=== PATIENT | female | born 1955 | race Caucasian/White ===

== ENCOUNTER 2017-07-20 09:26 | Emergency (ER) | payer OTHER ==
[2017-07-20 09:31] VITALS: RESP 18
--- NOTE | 2017-07-20 10:08 | ED ---
Lower Extremity Injury HPI - General Chief Complaint: Extremity Injury, Lower Stated Complaint: fall, foot injury Time Seen by Provider: 07/20/17 09:37 Source: patient, RN notes reviewed, old records reviewed Mode of arrival: wheelchair Limitations: no limitations - History of Present Illness Initial Comments: this is a 62-year-old female presenting to the emergency Department chief complaint of left foot and ankle pain for the past week. As well as right hip pain. Patient reports that she was jumping off her boat, and landed on both of her feet and her right hip. Patient states that over the past week she's had some increased swelling over her foot. She states that the pain has became progressively worse. She states the swelling has subsided at this time. Denies any difficulty with range of motion of her toes or ankle. She states the pain is now radiating towards her heel. Patient reports that she also was having difficulty with her right hip. She states the pain is over the lateral aspect of the hip. She states there is no bruising at the time that she fell.patient per that she was ambulating with crutches that she has at home. - Related Data Home Medications Medication Instructions Recorded Confirmed Ibuprofen [Motrin] 800 mg PO DAILY PRN 07/20/17 07/20/17 Previous Rx's Medication Instructions Recorded HYDROcodone/APAP 10-325MG [Lane 1 tab PO Q6H PRN #20 tab 07/20/17 10-325] Allergies Allergy/AdvReac Type Severity Reaction Status Date / Time No Known Allergies Allergy Verified 07/20/17 11:28 Review of Systems ROS Statement: Those systems with pertinent positive or pertinent negative responses have been documented in the HPI. ROS Other: All systems not noted in ROS Statement are negative. Past Medical History Past Medical History: No Reported History History of Any Multi-Drug Resistant Organisms: None Reported Past Surgical History: No Surgical Hx Reported Past Psychological History: No Psychological Hx Reported Smoking Status: Former smoker Past Alcohol Use History: None Reported Past Drug Use History: None Reported General Exam - General Exam Comments Initial Comments: this is a 62-year-old female. No acute distress. Limitations: no limitations General appearance: alert, in no apparent distress Head exam: Present: atraumatic, normocephalic, normal inspection Eye exam: Present: normal appearance, PERRL, EOMI. Absent: scleral icterus, conjunctival injection, periorbital swelling ENT exam: Present: normal exam, mucous membranes moist Neck exam: Present: normal inspection. Absent: tenderness, meningismus, lymphadenopathy Respiratory exam: Present: normal lung sounds bilaterally. Absent: respiratory distress, wheezes, rales, rhonchi, stridor Cardiovascular Exam: Present: regular rate, normal rhythm, normal heart sounds. Absent: systolic murmur, diastolic murmur, rubs, gallop, clicks GI/Abdominal exam: Present: soft, normal bowel sounds. Absent: distended, tenderness, guarding, rebound, rigid Extremities exam: Present: other (patient is smiling over the left foot and ankle. Less than 2 second capillary refill. Good dorsalis pedis pulse. Patient reports the pain is mainly over the posterior calcaneus. Patient also reports she is somewhat tender over the right IT band. Patient has full range of motion of the hip. No bruising noted.) Back exam: Present: normal inspection Neurological exam: Present: alert, oriented X3, CN II-XII intact Psychiatric exam: Present: normal affect, normal mood Skin exam: Present: warm, dry, intact, normal color. Absent: rash Course Vital Signs 07/20/17 07/20/17 09:28 12:31 Temperature 97.6 F 97.1 F L Pulse Rate 80 75 Respiratory 18 18 Rate Blood Pressure 166/86 186/90 O2 Sat by Pulse 100 100 Oximetry - Reevaluation(s) Reevaluation #1: 07/20/17 12:10 discussed the case with orthopedic physician operator assistant i cementing furnace mason, just covered. He recommends putting the patient in a posterior splint. Inpatient continue to use her crutches and be nonweightbearing. Discussed the compression fracture. Discussed thyroid the patient for pain medication, and they will follow up with her in the office tomorrow morning. Procedures - Orthopedic Splinting/Casting Injury #1 Side: left Lower Extremity Injury Location: foot Lower Extremity Immobilizer: posterior splint Other Orthopedic Equipment: crutches Additional Comments: Neurovascularly intact. Medical Decision Making - Medical Decision Making This is a 62 year old female with left heel pain and right hip and mild back pain one week after jumping off her boat onto a cement dock. Patient relates that the jump is 1-2 feet. Patient reports she landed on her feet, and rolled onto her left hip. Patient is found to have left calcaneus fracture. Discussed case with Dr. Livingston, he instructed to complete bilateral knee, hip, and back xray. Patient found to have L2 compression fracture. Patient reports that she never has had back injury before and this must be relatd to recent trauma. Discussed with MAXWELL Simmons the orthopedic furnace mason. Patient has no saddle anesthesia, and normal urination and bowel movement. Patient will be placed in posterior splint, and use crutches at home. Discussed follow up with orthopedic tomorrow morning. Patient will be given pain medication, and advised to follow up with orhtopedic. Return parameters such as saddle anesthesias discused. - Radiology Data Radiology results: report reviewed Severe superior endplate compression fracture of L2. Correlate with an MRI. Multilevel generative disc disease with grade 1 anterolateral listhesis on L4- L5. Left Calcaneus fracture That is comminuted. Bilateral hips, knees, and right foot are reviewed, no acute fractures. Disposition Clinical Impression: Compression fracture of L2 lumbar vertebra, Left calcaneal fracture Disposition: HOME SELF-CARE Condition: Good Instructions: Vertebral Compression Fracture (ED), Calcaneal Fracture (ED) Additional Instructions: Patient advised to be non-weight bearing over the left foot. Patient is to wear the splint as directed. Follow-up with orthopedics tomorrow morning. Return to the emergency department if any alarming signs or symptoms occur. Prescriptions: HYDROcodone/APAP 10-325MG [Lane 10-325] 1 tab PO Q6H PRN #20 tab PRN Reason: Pain Referrals: None,Stated [Primary Care Provider] - 1-2 days Bryan Bunch MD [Medical Doctor] - 1-2 days Time of Disposition: 12:22
--- NOTE | 2017-07-20 10:15 | XR ---
EXAMINATION TYPE: XR ankle complete LT DATE OF EXAM: 07/20/2017 COMPARISON: NONE HISTORY: Pain FINDINGS: Three views of the ankle demonstrate the ankle mortise to be intact and symmetric. The joint spaces are preserved. Suggestion of a cortical defect involving the calcaneus. Calcaneal spurs noted. Diffus e soft tissue edema noted. IMPRESSION: 1. Findings suspicious for calcaneal fracture..
--- NOTE | 2017-07-20 10:16 | XR ---
EXAMINATION TYPE: XR foot complete LT DATE OF EXAM: 07/20/2017 COMPARISON: NONE HISTORY: Pain TECHNIQUE: Three views are submitted. FINDINGS: There is previous surgical change involving the third digit or congenital anomaly. Arthropathy of the first MTP joint and diffuse osteopenia. There is a comminuted fracture involving the calcaneus. Calc aneal spurs noted. IMPRESSION: 1. There is a comminuted fracture involving the calcaneus with very mild asymmetric.
--- NOTE | 2017-07-20 10:17 | XR ---
EXAMINATION TYPE: XR Hip RT and AP Pelvis DATE OF EXAM: 07/20/2017 COMPARISON: NONE HISTORY: Pain TECHNIQUE: AP view pelvis 2 views right hip submitted FINDINGS: There is arthropathy of both hip joints. Diffuse osteopenia noted. Arthropathy of the SI joints greater on the right. No definite acute fracture or dislocation. IMPRESSION: 1. No definite acute fracture or dislocation. If symptoms persist then consider CT scan.
--- NOTE | 2017-07-20 11:25 | XR ---
EXAMINATION TYPE: XR foot complete RT DATE OF EXAM: 07/20/2017 COMPARISON: NONE HISTORY: Pain TECHNIQUE: Three views are submitted. FINDINGS: The osseous structures are intact and the joint spaces are preserved. There is no acute fracture or dislocation. Calcaneal spurs noted. Arthropathy of the first MTP joint is seen. IMPRESSION: 1. No acute fracture or dislocation. If symptoms persist, follow-up exam in 7 to 10 days could be ob tained.
--- NOTE | 2017-07-20 11:27 | XR ---
EXAMINATION TYPE: XR Hip Complete LT DATE OF EXAM: 07/20/2017 COMPARISON: NONE HISTORY: Pain TECHNIQUE: 2 views submitted FINDINGS: There is no evidence of erosive change or acute fracture. Arthropathy of the hip joint noted. IMPRESSION: 1. No evidence of acute fracture or dislocation.
--- NOTE | 2017-07-20 11:28 | XR ---
EXAMINATION TYPE: XR knee complete bilateral DATE OF EXAM: 07/20/2017 COMPARISON: NONE HISTORY: Pain TECHNIQUE: Four views are submitted. FINDINGS: Evidence of chondrocalcinosis and diffuse osteopenia. Narrowing of the joint spaces without evidence of erosive change.. Osseous structures are intact. No acute fracture seen. IMPRESSION: 1. No acute fracture or dislocation.
--- NOTE | 2017-07-20 11:50 | XR ---
EXAM TYPE: LUMBAR SPINE X RAY SERIES COMPARISON: NONE HISTORY: Pain TECHNIQUE: 4 views are submitted. FINDINGS: There is diffuse osteopenia. Multilevel degenerative disc disease seen and there is grade 1 anterolis thesis of L4 on L5 with severe facet arthropathy. There is a severe superior endplate compression fra cture of L2. IMPRESSION: 1. Severe superior endplate compression fracture L2. Correlate with MRI. 2. multilevel degenerative disc disease with grade 1 anterolisthesis L4 on L5.
[2017-07-20 12:32] VITALS: BP 186/90; PULSE 75; TEMP 97.1
--- NOTE | 2017-07-22 08:01 | CDI ---
Dear Mirna Lacy PA-C: Please do addendum type of splint. Thank you, Emmy Martin, Electronic Publications Specialist. If you have any questions, please contact Travel Attendants at [phone]. [facility]
== END 2017-07-20 12:38 | disposition home or self-care (01) ==
LOC: EC 09:26
DX: S92.002A Unspecified fracture of left calcaneus, initial encounter for closed fracture (principal); M48.56XA Collapsed vertebra, not elsewhere classified, lumbar region, initial encounter for fracture; M51.36 Other intervertebral disc degeneration, lumbar region; M43.16 Spondylolisthesis, lumbar region; M25.551 Pain in right hip; Z87.891 Personal history of nicotine dependence; W17.89XA Other fall from one level to another, initial encounter; Y93.39 Activity, other involving climbing, rappelling and jumping off
CPT/HCPCS: 29515; 72100; 73502; 99284

== ENCOUNTER → 2019-06-16 | Outpatient (CLI) | payer OTHER ==
[2019-06-16 10:06] LABS: Basophils # (A) 0.1 k/uL (0-0.2); Basophils % (A) 1 %; Eosinophils # (A) 0.3 k/uL (0-0.7); Eosinophils % (A) 7 %; HCT 46.2 % (34.0-46.0); HGB 15.1 gm/dL (11.4-16.0); Lymphocytes # (A) 1.2 k/uL (1.0-4.8); Lymphocytes % (A) 26 %; MCH 29.4 pg (25.0-35.0); MCHC 32.7 g/dL (31.0-37.0); MCV 89.9 fL (80.0-100.0); Monocytes # (A) 0.2 k/uL (0-1.0); Monocytes % (A) 5 %; Neutrophils # (A) 2.7 k/uL (1.3-7.7); Neutrophils % (A) 60 %; Platelet Count 299 k/uL (150-450); RBC 5.13 m/uL (3.80-5.40); RDW 13.7 % (11.5-15.5); WBC 4.6 k/uL (3.8-10.6)
[2019-06-16 16:05] LABS: African American GFR (CKD) 92.2 (60.0-200.0); Albumin 4.4 g/dL (3.80-4.90); Albumin/Globulin Ratio 1.76 (1.60-3.17); Anion Gap 10.2 mmol/L (4.00-12.00); BUN/Creat Ratio 17.5 Ratio (12.00-20.00); Calcium 10.1 mg/dL (8.7-10.3); Carbon Dioxide 32.8 mmol/L (21.6-31.8); Globulin 2.5 g/dL (1.6-3.3); LDL Cholesterol,Calculated 150.4 mg/dL (0.0-131.0); Total Bilirubin 0.5 mg/dL (0.3-1.2); Total Protein 6.9 g/dL (6.2-8.2); VLDL Calculation 13.6 mg/dL (5.00-40.00)
[2019-06-16 16:11] LABS: T4, Free (Free Thyroxine) 1.3 ng/dL (0.80-1.80)
== END | disposition home or self-care (01) ==
LOC: LABWHC1 09:33
PROVIDERS: ATTEND Nurse Practitioner
DX: Z00.00 Encounter for general adult medical examination without abnormal findings (principal); E55.9 Vitamin D deficiency, unspecified; E78.5 Hyperlipidemia, unspecified; R53.83 Other fatigue; Z13.220 Encounter for screening for lipoid disorders
CPT/HCPCS: 36415; 80053; 80061; 82306; 84439; 84443; 85025

== ENCOUNTER → 2019-07-06 | Outpatient (CLI) | payer OTHER ==
--- NOTE | 2019-07-06 09:05 | BD ---
EXAMINATION TYPE: Axial Bone Density DATE OF EXAM: 07/06/2019 COMPARISON: NONE CLINICAL HISTORY: post menopausal Height: 5'4 Weight: 176 FRAX RISK QUESTIONS: History of Fracture in Adulthood: y Secondary Osteoporosis: RISK FACTORS HISTORY OF: Postmenopausal woman: y MEDICATIONS: Additional Medications: Additional History: EXAM MEASUREMENTS: Bone mineral densitometry was performed using the [employer] System. Bone mineral density as measured about the Lumbar spine is: ----- L1-L4(G/cm2): 1.091 T Score Values are as follows: ----- L2: -1.1 ----- L3: -0.5 ----- L4: -0.6 ----- L1-L4: -0.7 Bone mineral density about the R hip (g/cm2): 0.673 Bone mineral density about the L hip (g/cm2): 0.749 T Score values are as follows: -----R Neck: -2.6 -----L Neck: -2.1 -----R Total: -2.6 -----L Total: -1.8 IMPRESSION: Osteoporosis (T Score less than -2.5). There is increased fracture risk and therapy is usually indicated based on age. Re-Screen 1-2 years. NOTE: T-SCORE=SD OF THE YOUNG ADULT MEAN.
--- NOTE | 2019-07-07 13:42 | MM ---
Reason for exam: screening (asymptomatic). Last mammogram was performed 14 years and 2 months ago. History: Patient is postmenopausal. Physical Findings: A clinical breast exam by your physician is recommended on an annual basis and results should be correlated with mammographic findings. MG Screening Mammo w CAD Bilateral CC and MLO view(s) were taken. No prior studies available for comparison. There are scattered fibroglandular densities. Benign appearing calcifications in the left breast. No suspicious abnormality. ASSESSMENT: Benign, BI-RAD 2 RECOMMENDATION: Routine screening mammogram of both breasts in 1 year.
== END | disposition home or self-care (01) ==
LOC: RADMAMWWP 07:43
PROVIDERS: ATTEND Family Medicine
DX: Z12.31 Encounter for screening mammogram for malignant neoplasm of breast (principal); M81.0 Age-related osteoporosis without current pathological fracture
CPT/HCPCS: 77067; 77080

== ENCOUNTER → 2019-08-23 | Outpatient (CLI) | payer OTHER ==
--- NOTE | 2019-08-24 13:45 | ECHOF ---
Referral Reason:I10 HTN MEASUREMENTS -------- HEIGHT: 165.1 cm WEIGHT: 79.4 kg BP: RVIDd: 4.0 cm (< 3.3) IVSd: 1.5 cm (0.6 - 1.1) LVIDd: 2.9 cm (3.9 - 5.3) LVPWd: 1.6 cm (0.6 - 1.1) IVSs: 1.9 cm LVIDs: 2.0 cm LVPWs: 1.7 cm LAESV Index (A-L): 28.38 ml/m Ao Diam: 2.6 cm (2.0 - 3.7) AV Cusp: 2.0 cm (1.5 - 2.6) LA Diam: 4.3 cm (2.7 - 3.8) EPSS: 0.6 cm MV E Ba: 0.84 m/s MV DecT: 197 ms MV A Ba: 0.87 m/s MV E/A Ratio: 0.97 RAP: 5.00 mmHg RVSP: 25.95 mmHg MV EF SLOPE: 95.89 mm/s (70 - 150) MV EXCURSION: 1.53 cm (> 18.000) FINDINGS -------- Sinus rhythm. The left ventricular size is normal. There is moderate concentric left ventricular hypertrophy. O verall left ventricular systolic function is normal with, an EF between 55 - 60 %. The diastolic fi lling pattern is normal for the age of the patient. The right ventricle is moderately enlarged. Left atrium is normal size by volume. The right atrium was not well visualized. Interatrial and interventricular septum intact. The aortic valve is trileaflet and appears structurally normal. There is no evidence of aortic regu rgitation. There is no evidence of aortic stenosis. There is trace to mild mitral regurgitation. Mild tricuspid regurgitation present. There is no evidence of pulmonary hypertension. The right v entricular systolic pressure, as measured by Doppler, is 25.95mmHg. There is no pulmonic regurgitation present. The aortic root size is normal. IVC not well visualized There is no pericardial effusion. CONCLUSIONS -------- 1. Sinus rhythm. 2. The left ventricular size is normal. 3. There is moderate concentric left ventricular hypertrophy. 4. Overall left ventricular systolic function is normal with, an EF between 55 - 60 %. 5. The diastolic filling pattern is normal for the age of the patient. 6. The right ventricle is moderately enlarged. 7. Left atrium is normal size by volume. 8. The right atrium was not well visualized. 9. Interatrial and interventricular septum intact. 10. The aortic valve is trileaflet and appears structurally normal. 11. There is no evidence of aortic regurgitation. 12. There is no evidence of aortic stenosis. 13. There is trace to mild mitral regurgitation. 14. Mild tricuspid regurgitation present. 15. There is no evidence of pulmonary hypertension. 16. The right ventricular systolic pressure, as measured by Doppler, is 25.95mmHg. 17. There is no pulmonic regurgitation present. 18. The aortic root size is normal. 19. IVC not well visualized 20. There is no pericardial effusion. SPRING BENDER: Saba Houston RDCS
== END | disposition home or self-care (01) ==
LOC: RADECHMAIN 12:53
PROVIDERS: ATTEND Family Medicine
DX: I08.1 Rheumatic disorders of both mitral and tricuspid valves (principal); I11.9 Hypertensive heart disease without heart failure
CPT/HCPCS: 93306

== ENCOUNTER 2022-12-25 19:12 | Emergency (ER) | payer MEDICARE, SELFPAY ==
[2022-12-25 19:31] VITALS: TEMP 98.4
--- NOTE | 2022-12-25 21:05 | US ---
EXAMINATION TYPE: US venous doppler duplex LE LT DATE OF EXAM: 12/25/2022 8:49 PM COMPARISON: 03/28/22 CLINICAL HISTORY: swelling, hx of DVT in LLE. left leg swelling. Hx of DVT in left leg. Patient state s she was on eloquis and got off of it in September SIDE PERFORMED: Left TECHNIQUE: The lower extremity deep venous system is examined utilizing real time linear array sonog chaparro with graded compression, doppler sonography and color-flow sonography. VESSELS IMAGED: Common Femoral Vein Deep Femoral Vein Greater Saphenous Vein * Femoral Vein Popliteal Vein Small Saphenous Vein * Proximal Calf Veins (* superficial vessels) Left Leg: Thrombus visualized in Common femoral vein, DFV, Femoral vein, and popliteal vein. No comp and no flow visualized in these vessels IMPRESSION: There is extensive acute deep vein thrombosis in the femoral vein and popliteal vein.
[2022-12-25] MEDS ORDERED: APIXABAN 5 MG TAB PO STA (21:10)
--- NOTE | 2022-12-25 22:36 | ED ---
Extremity Problem HPI - General Chief complaint: Extremity Problem,Nontraumatic Stated complaint: poss DVT - lt leg - edema - sent from pcp Time Seen by Provider: 12/25/22 20:07 Source: patient Mode of arrival: ambulatory Limitations: no limitations - History of Present Illness Initial comments: This is a 67-year-old female who presents for evaluation of possible DVT.Patient has history of left lower extremity DVT in March 2022. She was on Eliquis until September and has not taken any blood thinners since. Patient states around this time she noticed swelling of her left leg. The swelling has gradually worsened, involving the thigh and lower leg. Patient also reports pain in her inner knee with walking which over the past week has worsened. She denies calf pain. Denies chest pain and shortness of breath. Patient had x-rays at her primary care office today and was sent here for further evaluation. Denies hormone replacement, long car rides, airplane travel, surgical interventions, known cancers, family history of clotting, tobacco use - Related Data Previous Rx's Medication Instructions Recorded Apixaban [Eliquis] 5 mg PO BID 30 Days #74 tab 03/31/22 Apixaban [Eliquis Starter Pack 5 - 10 mg PO DIRECTED 30 Days 12/25/22 (for VTE)] #1 each Allergies Allergy/AdvReac Type Severity Reaction Status Date / Time No Known Allergies Allergy Verified 12/25/22 19:28 Review of Systems ROS Statement: Those systems with pertinent positive or pertinent negative responses have been documented in the HPI. ROS Other: All systems not noted in ROS Statement are negative. Past Medical History Past Medical History: Deep Vein Thrombosis (DVT) History of Any Multi-Drug Resistant Organisms: None Reported Past Surgical History: No Surgical Hx Reported Additional Past Surgical History / Comment(s): foot surgery Past Anesthesia/Blood Transfusion Reactions: No Reported Reaction Past Psychological History: No Psychological Hx Reported Smoking Status: Never smoker Past Alcohol Use History: None Reported Past Drug Use History: None Reported - Past Family History Mother Family Medical History: Diabetes Mellitus Additional Family Medical History / Comment(s): diet controlled General Exam Limitations: no limitations Respiratory exam: Present: normal lung sounds bilaterally. Absent: respiratory distress, wheezes, rales, rhonchi, stridor Cardiovascular Exam: Present: regular rate, normal rhythm, normal heart sounds. Absent: systolic murmur, diastolic murmur, rubs, gallop, clicks Extremities exam: Present: other (generalized swelling of RLE. Skin normal in color. Capillary refill less than 2 seconds. No calf tenderness. No tenderness with palpation of the inner knee) Neurological exam: Present: alert, oriented X3, CN II-XII intact Psychiatric exam: Present: normal affect, normal mood Skin exam: Present: warm, dry, intact, normal color. Absent: rash Course Vital Signs 12/25/22 12/25/22 19:28 22:51 Temperature 98.4 F Pulse Rate 77 71 Respiratory 18 15 Rate Blood Pressure 145/76 138/74 O2 Sat by Pulse 98 100 Oximetry Medical Decision Making - Medical Decision Making Was pt. sent in by a medical professional or institution (, PA, DAM OPERATOR, urgent care, hospital, or long term...) When possible be specific @ -[No] Did you speak to anyone other than the patient for history (EMS, parent, family, police, friend...)? What history was obtained from this source @ -[No] Did you review nursing and triage notes (agree or disagree)? Why? @ -[I reviewed and agree with nursing and triage notes] Were old charts reviewed (outside hosp., previous admission, EMS record, old EKG, old radiological studies, urgent care reports/EKG's, long term records)? Report findings @ -Yes, reviewed previous ultrasound which showed acute DVT of the right lower extremity in the CFV and GSV. Patient had evaluation by Dr. Wright this was found to be an unprovoked DVT Differential Diagnosis (chest pain, altered mental status, abdominal pain women, abdominal pain men, vaginal bleeding, weakness, fever, dyspnea, syncope, headache, dizziness, GI bleed, back pain, seizure, CVA, palpatations, mental health)? @ acute DVT, knee sprain, cellulitis EKG interpreted by me (3pts min.). @ -[As above] X-rays interpreted by me (1pt min.). @ -[None done] CT interpreted by me (1pt min.). @ -[None done] U/S interpreted by me (1pt. min.). @ -No. Report of ultrasound with Doppler of right lower extremity shows t hrombus visualize the common femoral vein, deep femoral vein, femoral vein, popliteal vein. No comp and no flow visualized in these vessels What testing was considered but not performed or refused? (CT, X-rays, U/S, labs)? Why? @ -[None] What meds were considered but not given or refused? Why? @ -[None] Did you discuss the management of the patient with other professionals (professionals i.e. DrCarlo, PA, DAM OPERATOR, lab, RT, psych nurse, social worker aide, information clerk, teacher, tax revenue officer, immigration case manager)? Give summary @ -[No] Was smoking cessation discussed for >3mins.? @ -[No] Was critical care preformed (if so, how long)? @ -[No] Were there social determinants of health that impacted care today? How? (Homelessness, low income, unemployed, alcoholism, drug addiction, transportation, low edu. Level, literacy, decrease access to med. care, care home, rehab)? @ -[No] Was there de-escalation of care discussed even if they declined (Discuss DNR or withdrawal of care, Hospice)? DNR status @ -[No] What co-morbidities impacted this encounter? (DM, HTN, Smoking, COPD, CAD, Cancer, CVA, ARF, Chemo, Hep., AIDS, mental health diagnosis, sleep apnea, morbid obesity)? @ -[None] Was patient admitted / discharged? Hospital course, mention meds given and route, prescriptions, significant lab abnormalities, going to OR and other pertinent info. @ -Discharged. With extensive acute DVT I did recommend patient be admitted for hematology evaluation as this appears to be patient's second unprovoked DVT. Patient declines admission. States she would like to go home. We discussed strict return parameters in detail. Patient given first dose of Eliquis in the emergency department. She plans to follow-up with Dr. Mckeon in the office tomorrow. Undiagnosed new problem with uncertain prognosis? @ -[No] Drug Therapy requiring intensive monitoring for toxicity (Heparin, Nitro, Insulin, Cardizem)? @ -[No] Were any procedures done? @ -[No] Diagnosis/symptom? @ -acute DVT Acute, or Chronic, or Acute on Chronic? @ -acute Uncomplicated (without systemic symptoms) or Complicated (systemic symptoms)? @ -uncomplicated Side effects of treatment? @ -[No] Exacerbation, Progression, or Severe Exacerbation? @ -[No] Poses a threat to life or bodily function? How? (Chest pain, [place], [place], pneumonia, PE, COPD, DKA, ARF, appy, cholecystitis, CVA, Diverticulitis, Homicidal, Suicidal, threat to staff... and all critical care pts) @ -[No] Dr. Kauffman is my attended Disposition Clinical Impression: Deep vein thrombosis (DVT) of lower extremity Disposition: HOME SELF-CARE Condition: Fair Instructions (If sedation given, give patient instructions): Deep Vein Thrombosis (ED), Deep Vein Thrombosis Prevention (ED) Additional Instructions: Take medication as directed. Follow-up with Dr. Mckeon and vascular surgery in 1-2 days. Return to the emergency department if you experience new, concerning, or worsening symptoms. Prescriptions: Apixaban [Eliquis Starter Pack (for VTE)] 5 - 10 mg PO DIRECTED 30 Days #1 each Is patient prescribed a controlled substance at d/c from ED?: No Referrals: Sylvain Mckeon MD [Primary Care Provider] - 1-2 days Cameron Silva DO [STAFF PHYSICIAN] - 1-2 days
[2022-12-25 22:52] VITALS: BP 138/74; PULSE 71; RESP 15
== END 2022-12-25 22:59 | disposition home or self-care (01) ==
LOC: EC 19:12
DX: I82.432 Acute embolism and thrombosis of left popliteal vein (principal)
CPT/HCPCS: 99283

== ENCOUNTER 2023-04-21 11:01 | Emergency (ER) | payer MEDICARE ==
[2023-04-21 11:17] VITALS: TEMP 97.9
--- NOTE | 2023-04-21 12:03 | ED ---
General Adult HPI - General Chief complaint: Recheck/Abnormal Lab/Rx Stated complaint: blister on chin/pain in L knee Time Seen by Provider: 04/21/23 11:34 Source: patient, RN notes reviewed Mode of arrival: ambulatory Limitations: no limitations - History of Present Illness Initial comments: 67-year-old female presents to the emergency department with chief complaint of left knee pain and rash below her lip. Denies fever, chills. She states that the pain in her knee has been going on for around a week. He states it is worse when she is lying in bed at night and she is able to get around as she normally would. She states it is similar to the pain that she had when the DVT was found in December. She states that she has a history of DVT and is on blood thinners currently. Denies chest pain, shortness of breath. Denies erythema, warmth, or swelling to the area. She also reports a rash on her lip that has been there for around 3 days. She states that she believes it started as a cold sore and put abreeva on it. She states that there is drainage from the area which appears to be yellow to clear. - Related Data Previous Rx's Medication Instructions Recorded Apixaban [Eliquis] 5 mg PO BID 30 Days #74 tab 03/31/22 Apixaban [Eliquis Starter Pack 5 - 10 mg PO DIRECTED 30 Days 12/25/22 (for VTE)] #1 each Allergies Allergy/AdvReac Type Severity Reaction Status Date / Time No Known Allergies Allergy Verified 04/21/23 11:17 Review of Systems ROS Statement: Those systems with pertinent positive or pertinent negative responses have been documented in the HPI. ROS Other: All systems not noted in ROS Statement are negative. Past Medical History Past Medical History: Deep Vein Thrombosis (DVT) History of Any Multi-Drug Resistant Organisms: None Reported Past Surgical History: Orthopedic Surgery Additional Past Surgical History / Comment(s): foot surgery Past Anesthesia/Blood Transfusion Reactions: No Reported Reaction Past Psychological History: No Psychological Hx Reported Smoking Status: Never smoker Past Alcohol Use History: None Reported Past Drug Use History: None Reported - Past Family History Mother Family Medical History: Diabetes Mellitus Additional Family Medical History / Comment(s): diet controlled General Exam Limitations: no limitations General appearance: alert, in no apparent distress Head exam: Present: atraumatic, normocephalic, normal inspection Eye exam: Present: normal appearance ENT exam: Present: mucous membranes moist, other (Yellow rash and crusts with clear to yellow drainage below the lip on the right side) Neck exam: Present: normal inspection. Absent: tenderness, meningismus, lymphadenopathy Respiratory exam: Present: normal lung sounds bilaterally. Absent: respiratory distress, wheezes, rales, rhonchi, stridor Cardiovascular Exam: Present: regular rate, normal rhythm, normal heart sounds. Absent: systolic murmur, diastolic murmur, rubs, gallop, clicks Extremities exam: Present: normal inspection, full ROM, tenderness (mild to medial left knee) Neurological exam: Present: alert, oriented X3 Psychiatric exam: Present: normal affect, normal mood Skin exam: Present: warm, dry, intact, normal color. Absent: rash Course Vital Signs 04/21/23 04/21/23 11:12 13:45 Temperature 97.9 F Pulse Rate 74 65 Respiratory 20 18 Rate Blood Pressure 148/80 171/86 O2 Sat by Pulse 99 100 Oximetry Medical Decision Making - Medical Decision Making Was pt. sent in by a medical professional or institution (, PA, CAMPGROUND MANAGER, urgent care, hospital, or fdc...) When possible be specific @ -No Did you speak to anyone other than the patient for history (EMS, parent, family, police, friend...)? What history was obtained from this source @ -No Did you review nursing and triage notes (agree or disagree)? Why? @ -I reviewed and agree with nursing and triage notes Were old charts reviewed (outside hosp., previous admission, EMS record, old EKG, old radiological studies, urgent care reports/EKG's, fdc records)? Report findings @ -Prior ultrasound of the left lower extremity was reviewed and compared with ultrasound today which showed improvement in the DVT that was found at that time in December Differential Diagnosis (chest pain, altered mental status, abdominal pain women, abdominal pain men, vaginal bleeding, weakness, fever, dyspnea, syncope, headache, dizziness, GI bleed, back pain, seizure, CVA, palpatations, mental health, musculoskeletal)? @ -Differential Musculoskeletal Muscular strain, contusion, ligament sprain, fracture, arthritis, septic arthritis, bursitis, cellulitis, muscle spasm, nerve compression, DVT, arterial occlusion, herpes zoster, electrolyte abnormality, tumor.... This is not meant to be in all inclusive list EKG interpreted by me (3pts min.). @ -none X-rays interpreted by me (1pt min.). @ -XR left knee was obtained which showed mild arthritic changes CT interpreted by me (1pt min.). @ -None done U/S interpreted by me (1pt. min.). @ -Ultrasound of the left lower extremity was obtained which showed positive DVT but improvement from prior ultrasound What testing was considered but not performed or refused? (CT, X-rays, U/S, labs)? Why? @ -None What meds were considered but not given or refused? Why? @ -None Did you discuss the management of the patient with other professionals (professionals i.e. , PA, CAMPGROUND MANAGER, lab, RT, psych nurse, social work program coordinator, stock grader, teacher, financial administration officer, case finishing machine adjuster)? Give summary @ -No Was smoking cessation discussed for >3mins.? @ -No Was critical care preformed (if so, how long)? @ -No Were there social determinants of health that impacted care today? How? (Homelessness, low income, unemployed, alcoholism, drug addiction, t ransportation, low edu. Level, literacy, decrease access to med. care, usp, rehab)? @ -No Was there de-escalation of care discussed even if they declined (Discuss DNR or withdrawal of care, Hospice)? DNR status @ -No What co-morbidities impacted this encounter? (DM, HTN, Smoking, COPD, CAD, Cancer, CVA, ARF, Chemo, Hep., AIDS, mental health diagnosis, sleep apnea, morbid obesity)? @ -None Was patient admitted / discharged? Hospital course, mention meds given and route, prescriptions, significant lab abnormalities, going to OR and other pertinent info. @ -Discharged. Patient presented to emergency department with chief complaint of left knee pain 1 week. Patient has a history of DVT and is on Eliquis twice a day which she states she has taking as prescribed. On examination, there is no swelling, erythema to the left leg. There is mild tenderness to the medial aspect of the left knee. X-ray of the left knee was obtained which showed mild arthritic changes. Ultrasound was positive for DVT but there was improvement from prior ultrasound and patient is taking blood thinners. Patient is not having any chest pain or shortness of breath and her vital signs are stable. I discussed this case with my attending, Dr. Armstrong who agrees that there is no need for further management of the DVT at this time. Patient was also reporting a sore or rash under her lip on the right side that is having some drainage. Patient has no new medications. Patient was given Bactroban to apply to this area every 6-8 hours. Patient advised follow-up with her primary care provider. Patient discharged in stable condition Undiagnosed new problem with uncertain prognosis? @ -No Drug Therapy requiring intensive monitoring for toxicity (Heparin, Nitro, Insulin, Cardizem)? @ -No Were any procedures done? @ -No Diagnosis/symptom? @ -DVT Acute, or Chronic, or Acute on Chronic? @ -acute on chronic Uncomplicated (without systemic symptoms) or Complicated (systemic symptoms)? @ -uncomplicated Side effects of treatment? @ -No Exacerbation, Progression, or Severe Exacerbation? @ -No Poses a threat to life or bodily function? How? (Chest pain, [place], [place], pneumonia, PE, COPD, DKA, ARF, appy, cholecystitis, CVA, Diverticulitis, Homicidal, Suicidal, threat to staff... and all critical care pts) @ -No Diagnosis/symptom? @ -impetigo Acute, or Chronic, or Acute on Chronic? @ -acute Uncomplicated (without systemic symptoms) or Complicated (systemic symptoms)? @ -uncomplicated Side effects of treatment? @ -none Exacerbation, Progression, or Severe Exacerbation] @ -no Poses a threat to life or bodily function? @ -no Disposition Clinical Impression: Deep vein thrombosis (DVT) of lower extremity, Impetigo Disposition: HOME SELF-CARE Condition: Stable Instructions (If sedation given, give patient instructions): Deep Vein Thrombosis (ED) Additional Instructions: Please apply the antibiotic ointment every 8 hours for 5 days. Follow-up with Dr. Mckeon this week. Please return to the emergency department for new or worsening symptoms. Is patient prescribed a controlled substance at d/c from ED?: No Referrals: Sylvain Mckeon MD [Primary Care Provider] - 1-2 days Time of Disposition: 13:26
[2023-04-21] MEDS ORDERED: MUPIROCIN 2% OINT 22 GM TUBE TOPICAL STA (12:10)
--- NOTE | 2023-04-21 12:32 | XR ---
EXAMINATION TYPE: XR knee complete LT DATE OF EXAM: 04/21/2023 CLINICAL HISTORY: Pain. TECHNIQUE: Three views of the left knee are obtained. COMPARISON: Prior bilateral knee x-ray July 20, 2017. FINDINGS: There is no acute fracture/dislocation evident in the left knee. Moderate narrowing medial tibiofemoral compartment redemonstrated. Mild to moderate narrowing patellofemoral compartment redem onstrated. Overlying soft tissue appears unremarkable. IMPRESSION: As above.
--- NOTE | 2023-04-21 13:07 | US ---
EXAMINATION TYPE: US venous doppler duplex LE LT DATE OF EXAM: 04/21/2023 12:54 PM COMPARISON: Prior left lower extremity venous ultrasound December 25, 2022 CLINICAL INDICATION: Female, 67 years old with history of pain, hx dvt; Left knee pain, history of DV T left leg in DEC, pt currently on blood thinners SIDE PERFORMED: Left TECHNIQUE: The lower extremity deep venous system is examined utilizing real time linear array sonog chaparro with graded compression, doppler sonography and color-flow sonography. VESSELS IMAGED: Common Femoral Vein Deep Femoral Vein Greater Saphenous Vein * Femoral Vein Popliteal Vein Small Saphenous Vein * Proximal Calf Veins (* superficial vessels) Left Leg: Thrombus of indeterminant age from proximal femoral vein to proximal calf veins with threa dy flow/ Thrombus resolved within left EIV and CFV when compared to prior Grayscale, color doppler, spectral doppler imaging performed of the deep veins of the left lower extr emity. IMPRESSION: Some persistent DVT in the left lower extremity as detailed above. Findings improved but not resolved since prior.
[2023-04-21 13:55] VITALS: BP 171/86; PULSE 65; RESP 18
== END 2023-04-21 13:45 | disposition home or self-care (01) ==
LOC: EC 11:01
DX: I82.402 Acute embolism and thrombosis of unspecified deep veins of left lower extremity (principal); L01.00 Impetigo, unspecified
CPT/HCPCS: 99284

== ENCOUNTER 2023-10-08 19:18 | Emergency (ER) | payer MEDICARE ==
[2023-10-08 20:13] VITALS: RESP 18
[2023-10-08] MEDS ORDERED: DEXAMETHASONE SOD PHOSPHATE 10 MG/ML 1 ML VIAL IM STA (20:23)
[2023-10-08] MEDS ORDERED: KETOROLAC 15 MG/ML 1 ML VIAL IM STA (20:23)
--- NOTE | 2023-10-08 21:28 | US ---
EXAMINATION TYPE: US venous doppler duplex LE RT DATE OF EXAM: 10/08/2023 9:03 PM COMPARISON: 04/21/2023 CLINICAL INDICATION: Female, 68 years old with history of calf pain; Right leg pain today. Hx of DVT in left leg since last year. On blood thinners SIDE PERFORMED: Right TECHNIQUE: The lower extremity deep venous system is examined utilizing real time linear array sonog chaparro with graded compression, doppler sonography and color-flow sonography. VESSELS IMAGED: Common Femoral Vein Deep Femoral Vein Greater Saphenous Vein * Femoral Vein Popliteal Vein Small Saphenous Vein * Proximal Calf Veins (* superficial vessels) Right Leg: No evidence for DVT IMPRESSION: Grayscale, color doppler, spectral doppler imaging performed of the deep veins of the lo wer extremities. There is normal flow, compressibility, vascular waveforms.
--- NOTE | 2023-10-08 21:44 | ED ---
Extremity Problem HPI - General Chief complaint: Extremity Problem,Nontraumatic Stated complaint: right leg pain Time Seen by Provider: 10/08/23 20:04 Source: patient, family Mode of arrival: wheelchair Limitations: no limitations - History of Present Illness Initial comments: 68-year-old female presenting with chief complaint of right-sided calf pain. Patient states that the pain started suddenly while at work this evening. No injury or trauma. She states that she does have some pain that radiates from the hip down the leg, however it is worse over the calf. She does have history of DVT and is currently on eliquis. No loss of bowel or bladder control or stop her constipation. No numbness, tingling, weakness. No discoloration or defo rmity. Patient states that the pain feels like a shooting pain down the leg. She has not taken anything for pain prior to arrival. No chest pain or difficulty breathing - Related Data Previous Rx's Medication Instructions Recorded Apixaban [Eliquis] 5 mg PO BID 30 Days #74 tab 03/31/22 Apixaban [Eliquis Starter Pack 5 - 10 mg PO DIRECTED 30 Days 12/25/22 (for VTE)] #1 each Allergies Allergy/AdvReac Type Severity Reaction Status Date / Time No Known Allergies Allergy Verified 10/08/23 19:51 Review of Systems ROS Statement: Those systems with pertinent positive or pertinent negative responses have been documented in the HPI. ROS Other: All systems not noted in ROS Statement are negative. Past Medical History Past Medical History: Deep Vein Thrombosis (DVT) History of Any Multi-Drug Resistant Organisms: None Reported Past Surgical History: Orthopedic Surgery Additional Past Surgical History / Comment(s): foot surgery Past Anesthesia/Blood Transfusion Reactions: No Reported Reaction Past Psychological History: No Psychological Hx Reported Smoking Status: Never smoker Past Alcohol Use History: Occasional Past Drug Use History: None Reported - Past Family History Mother Family Medical History: Diabetes Mellitus Additional Family Medical History / Comment(s): diet controlled General Exam Limitations: no limitations General appearance: alert, in no apparent distress Head exam: Present: atraumatic, normocephalic, normal inspection Eye exam: Present: normal appearance, EOMI Neck exam: Present: normal inspection, full ROM Respiratory exam: Absent: respiratory distress Extremities exam: Present: normal inspection, full ROM, normal capillary refill. Absent: tenderness, pedal edema Neurological exam: Present: alert, oriented X3 Psychiatric exam: Present: normal affect, normal mood Skin exam: Present: warm, dry, intact, normal color. Absent: rash Course Vital Signs 10/08/23 10/08/23 19:49 21:58 Temperature 98.2 F 97.4 F L Pulse Rate 71 87 Respiratory 18 18 Rate Blood Pressure 172/84 153/82 O2 Sat by Pulse 99 96 Oximetry Medical Decision Making - Medical Decision Making Was pt. sent in by a medical professional or institution (, PA, FAMILY WORKER, urgent care, hospital, or long-term...) When possible be specific @ -No Did you speak to anyone other than the patient for history (EMS, parent, family, police, friend...)? What history was obtained from this source @ -No Did you review nursing and triage notes (agree or disagree)? Why? @ -I reviewed and agree with nursing and triage notes Were old charts reviewed (outside hosp., previous admission, EMS record, old EKG, old radiological studies, urgent care reports/EKG's, long-term records)? Report findings @ -No old charts were reviewed Differential Diagnosis (chest pain, altered mental status, abdominal pain women, abdominal pain men, vaginal bleeding, weakness, fever, dyspnea, syncope, headache, dizziness, GI bleed, back pain, seizure, CVA, palpatations, mental health, musculoskeletal)? @ -Differential Musculoskeletal Muscular strain, contusion, ligament sprain, fracture, arthritis, septic arthritis, bursitis, cellulitis, muscle spasm, nerve compression, DVT, arterial occlusion, herpes zoster, electrolyte abnormality, tumor.... This is not meant to be in all inclusive list EKG interpreted by me (3pts min.). @ -As above X-rays interpreted by me (1pt min.). @ -None done CT interpreted by me (1pt min.). @ -None done U/S interpreted by me (1pt. min.). @ -Ultrasound negative for DVT What testing was considered but not performed or refused? (CT, X-rays, U/S, labs)? Why? @ -None What meds were considered but not given or refused? Why? @ -None Did you discuss the management of the patient with other professionals (professionals i.e. , [employer], FAMILY WORKER, lab, RT, psych nurse, manager social work, public welfare director, teacher, special skills officer, fire investigation manager)? Give summary @ -No Was smoking cessation discussed for >3mins.? @ -No Was critical care preformed (if so, how long)? @ -No Were there social determinants of health that impacted care today? How? (Homelessness, low income, unemployed, alcoholism, drug addiction, transportation, low edu. Level, literacy, decrease access to med. care, long term, rehab)? @ -No Was there de-escalation of care discussed even if they declined (Discuss DNR or withdrawal of care, Hospice)? DNR status @ -No What co-morbidities impacted this encounter? (DM, HTN, Smoking, COPD, CAD, Cancer, CVA, ARF, Chemo, Hep., AIDS, mental health diagnosis, sleep apnea, morbid obesity)? @ -None Was patient admitted / discharged? Hospital course, mention meds given and route, prescriptions, significant lab abnormalities, going to OR and other pertinent info. @ -68-year-old female presenting with chief complaint of right leg pain. Patient has history of DVT and is currently on anticoagulation. Ultrasound is negative for DVT. She reports resolution of her symptoms after Toradol and Decadron. She is educated on today's findings and supportive management at home. Follow-up with PCP. Report back to ER with any new or worsening symptoms. Discussed return parameters and answered all questions. Patient conveyed verbal understanding and agreed to the plan. I discussed this case in detail with my attending Dr. Crum Undiagnosed new problem with uncertain prognosis? @ -No Drug Therapy requiring intensive monitoring for toxicity (Heparin, Nitro, Insulin, Cardizem)? @ -No Were any procedures done? @ -No Diagnosis/symptom? @ -Leg pain Acute, or Chronic, or Acute on Chronic? @ -acute Uncomplicated (without systemic symptoms) or Complicated (systemic symptoms)? @ -Uncomplicated Side effects of treatment? @ -No Exacerbation, Progression, or Severe Exacerbation? @ -No Poses a threat to life or bodily function? How? (Chest pain, [place], [place], pneumonia, PE, COPD, DKA, ARF, appy, cholecystitis, CVA, Diverticulitis, Homicidal, Suicidal, threat to staff... and all critical care pts) @ -No Disposition Clinical Impression: Nerve pain Disposition: HOME SELF-CARE Condition: Good Instructions (If sedation given, give patient instructions): Lumbar Radiculopathy (ED) Additional Instructions: Follow-up with PCP. Report back to ER if any new or worsening symptoms. Alternate Motrin and Tylenol as needed for pain control. Is patient prescribed a controlled substance at d/c from ED?: No Referrals: Sylvain Mckeon MD [Primary Care Provider] - 1-2 days Time of Disposition: 21:44
[2023-10-08 22:06] VITALS: BP 153/82; PULSE 87; TEMP 97.4
== END 2023-10-08 21:58 | disposition home or self-care (01) ==
LOC: EC 19:18
DX: M79.2 Neuralgia and neuritis, unspecified (principal); Z79.01 Long term (current) use of anticoagulants; Z86.718 Personal history of other venous thrombosis and embolism
CPT/HCPCS: 93971; 99284; 96372 ×2; J1100; J1885

== ENCOUNTER 2025-04-30 02:43 | Emergency (ER) | payer MEDICARE ==
--- NOTE | 2025-04-30 03:17 | ED ---
General Adult HPI - General Chief complaint: Nausea/Vomiting/Diarrhea Stated complaint: NVD Time Seen by Provider: 04/30/25 02:56 Source: patient Mode of arrival: wheelchair Limitations: no limitations - History of Present Illness Initial comments: Dictation was produced using [employer] dictation software. please excuse any grammatical, word or spelling errors. Chief Complaint: 69-year-old female with diarrhea History of Present Illness: Patient 69-year-old female presents emergency department 3 days of watery diarrhea. Denies any obvious sick contacts. No recent travel. Denies any camping or exposure to foodborne illnesses. Denies any fever, chills or night sweats. She does complain of some mild rectal pressure prior to diarrhea episode. Has had more than 7 diarrhea episodes per day since the onset of her symptoms. The ROS documented in this emergency department record has been reviewed and confirmed by me. Those systems with pertinent positive or negative responses have been documented in the HPI. All other systems are other negative and/or noncontributory. - Related Data Previous Rx's Medication Instructions Recorded Apixaban [Eliquis] 5 mg PO BID 30 Days #74 tab 03/31/22 Apixaban [Eliquis Starter Pack 5 - 10 mg PO DIRECTED 30 Days 12/25/22 (for VTE)] #1 each Azithromycin [Zithromax Z Pack] 1 tab PO DIRECTED #6 tab 04/30/25 Allergies Allergy/AdvReac Type Severity Reaction Status Date / Time No Known Allergies Allergy Verified 04/30/25 02:51 Review of Systems ROS Statement: Those systems with pertinent positive or pertinent negative responses have been documented in the HPI. ROS Other: All systems not noted in ROS Statement are negative. Past Medical History Past Medical History: Deep Vein Thrombosis (DVT) History of Any Multi-Drug Resistant Organisms: None Reported Past Surgical History: Orthopedic Surgery Additional Past Surgical History / Comment(s): foot surgery Past Anesthesia/Blood Transfusion Reactions: No Reported Reaction Past Psychological History: No Psychological Hx Reported Smoking Status: Never smoker Past Alcohol Use History: Occasional Past Drug Use History: None Reported - Past Family History Mother Family Medical History: Diabetes Mellitus Additional Family Medical History / Comment(s): diet controlled General Exam - General Exam Comments Initial Comments: PHYSICAL EXAM: General Impression: Alert and oriented x3, not in acute distress HEENT: Normocephalic atraumatic, extra-ocular movements intact, pupils equal and reactive to light bilaterally, mucous membranes moist. Cardiovascular: Heart regular rate and rhythm Chest: Able to complete full sentences, no retractions, no tachypnea Abdomen: abdomen soft, non-tender, non-distended, no organomegaly Musculoskeletal: Pulses present and equal in all extremities, no peripheral edema Motor: no focal deficits noted Neurological: CN II-XII grossly intact, no focal motor or sensory deficits noted Skin: Intact with no visualized rashes Psych: Normal affect and mood Limitations: no limitations Course Vital Signs 04/30/25 04/30/25 04/30/25 02:49 03:27 05:22 Temperature 100 F H 100.7 F H 99.1 F Pulse Rate 105 H 80 84 Respiratory 18 16 16 Rate Blood Pressure 123/76 147/83 153/73 O2 Sat by Pulse 96 97 99 Oximetry Medical Decision Making - Medical Decision Making Was pt. sent in by a medical professional or institution (, PA, [employer], urgent care, hospital, or longterm...) When possible be specific @ -No Did you speak to anyone other than the patient for history (EMS, parent, family, police, friend...)? What history was obtained from this source @ -No Did you review nursing and triage notes (agree or disagree)? Why? @ -I reviewed and agree with nursing and triage notes Were old charts reviewed (outside hosp., previous admission, EMS record, old EKG, old radiological studies, urgent care reports/EKG's, longterm records)? Report findings @ -No old charts were reviewed Differential Diagnosis (chest pain, altered mental status, abdominal pain women, abdominal pain men, vaginal bleeding, musculoskeletal, weakness, fever, dyspnea, syncope, headache, dizziness, GI bleed, back pain, seizure, CVA, palpatations, mental health)? @ -Enteritis, bacterial enteritis, gastroenteritis EKG interpreted by me (3pts min.). @ -None done X-rays interpreted by me (1pt min.). @ -None done CT interpreted by me (1pt min.). @ -None done U/S interpreted by me (1pt. min.). @ -None done What testing was considered but not performed or refused? (CT, X-rays, U/S, labs)? Why? @ -None What meds were considered but not given or refused? Why? @ -None Was smoking cessation discussed for >3mins.? @ -No Were there social determinants of health that impacted care today? How? (Homelessness, low income, unemployed, alcoholism, drug addiction, transportation, low edu. Level, literacy, decrease access to med. care, long term, rehab)? @ -No Was there de-escalation of care discussed even if they declined (Discuss DNR or withdrawal of care, Hospice)? DNR status @ -No What co-morbidities impacted this encounter? (DM, HTN, Smoking, COPD, CAD, Cancer, CVA, ARF, Chemo, Hep., AIDS, mental health diagnosis, sleep apnea, morbid obesity)? @ -None Was patient admitted / discharged? Hospital course, mention meds given and route, prescriptions, significant lab abnormalities, going to OR and other pertinent info. @ -69-year-old female with profuse severe diarrhea. Vital signs are stable. Patient complains of dehydration associated. Labs unremarkable. Patient given 2 L of fluid. Patient candidate for antibiotic administration for concerns of bacterial cause of diarrhea. Patient given prescription. Reevaluated bedside at 5:34 AM on repeat stable condition. Discharge advised follow-up with primary care doctor. Did you discuss the management of the patient with other professionals (professionals i.e. , PA, [employer], lab, RT, psych nurse, social insurance adviser, program aide group work, teacher, bank secrecy act officer, case managers)? Give summary @ -No Was critical care preformed (if so, how long)? @ -No Undiagnosed new problem with uncertain prognosis? @ -No Drug Therapy requiring intensive monitoring for toxicity (Heparin, Nitro, Insulin, Cardizem)? @ -No Were any procedures done? @ -No Diagnosis/symptom? Acute, or Chronic, or Acute on Chronic? Uncomplicated (without systemic symptoms) or Complicated (systemic symptoms)? @ -Bacterial enteritis Side effects of treatment? @ -No Exacerbation, Progression, or Severe Exacerbation? @ -No Poses a threat to life or bodily function? How? (Chest pain, USA, CT, pneumonia, PE, COPD, DKA, ARF, appy, cholecystitis, CVA, Diverticulitis, Homicidal, Suicidal, threat to staff... and all critical care pts) @ -yes - Lab Data Result diagrams: 04/30/25 03:20 04/30/25 03:20 Lab Results 04/30/25 04/30/25 04/30/25 Range/Units 03:20 03:20 03:20 WBC 3.55 L (4.50-10.00) 10*3/uL RBC 4.01 L (4.10-5.20) 10*6/uL Hgb 12.5 (12.0-15.0) g/dL Hct 37.1 L (37.2-46.3) % MCV 92.5 (80.0-97.0) fL MCH 31.2 (27.0-32.0) pg MCHC 33.7 (32.0-37.0) g/dL Plt Count 171 (140-440) 10*3/uL MPV 10.5 (9.5-12.2) fL Immature Gran % (Auto) 0.6 % Neutrophils % 79.1 % Lymphocytes % 7.6 % Monocytes % 11.3 % Eosinophils % 0.3 % Basophils % 1.1 % Immature Gran # 0.02 (0.00-0.04) 10*3/uL Neutrophils # 2.81 (1.80-7.70) 10*3/uL Lymphocytes # 0.27 L (0.90-5.00) 10*3/uL Monocytes # 0.40 (0.20-1.00) 10*3/uL Eosinophils # 0.01 L (0.04-0.35) 10*3/uL Basophils # 0.04 (0.00-0.10) 10*3/uL Sodium 131 L (137-145) mmol/L Potassium 3.9 (3.5-5.1) mmol/L Chloride 95 L (98-107) mmol/L Carbon Dioxide 21 L (22-30) mmol/L Anion Gap 15 mmol/L BUN 21 H (7-17) mg/dL Creatinine 0.87 (0.52-1.04) mg/dL Est GFR (CKD-EPI)AfAm 80 (>60 ml/min/1.73 sqM) Est GFR (CKD-EPI)NonAf 69 (>60 ml/min/1.73 sqM) Glucose 99 (74-99) mg/dL Calcium 9.9 (8.4-10.2) mg/dL Total Bilirubin 0.6 (0.2-1.3) mg/dL AST 25 (14-36) U/L ALT 12 (4-34) U/L Alkaline Phosphatase 67 (38-126) U/L Total Protein 7.1 (6.3-8.2) g/dL Albumin 4.2 (3.5-5.0) g/dL Influenza Type A (PCR) Not Detected (Not Detectd) Influenza Type B (PCR) Not Detected (Not Detectd) RSV (PCR) Not Detected (Not Detectd) SARS-CoV-2 (PCR) Not Detected (Not Detectd) Disposition Clinical Impression: Diarrhea Disposition: HOME SELF-CARE Condition: Fair Instructions (If sedation given, give patient instructions): Acute Diarrhea (ED) Prescriptions: Azithromycin [Zithromax Z Pack] 1 tab PO DIRECTED #6 tab Is patient prescribed a controlled substance at d/c from ED?: No Referrals: Sylvain Mckeon MD [Primary Care Provider] - 1-2 days Time of Disposition: 05:33
[2025-04-30] MEDS: SODIUM CHLORIDE 0.9% 1,000 ML IV STA ×2 (03:20→04:33)
[2025-04-30 03:41] LABS: Basophils # (A) 0.04 10*3/uL (0.00-0.10); Basophils % (A) 1.1 %; Eosinophils # (A) 0.01 10*3/uL (0.04-0.35); Eosinophils % (A) 0.3 %; HCT 37.1 % (37.2-46.3); HGB 12.5 g/dL (12.0-15.0); Lymphocytes # (A) 0.27 10*3/uL (0.90-5.00); Lymphocytes % (A) 7.6 %; MCH 31.2 pg (27.0-32.0); MCHC 33.7 g/dL (32.0-37.0); MCV 92.5 fL (80.0-97.0); Mean Platelet Volume 10.5 fL (9.5-12.2); Monocytes % (A) 11.3 %; Neutrophils # (A) 2.81 10*3/uL (1.80-7.70); Neutrophils % (A) 79.1 %; Platelet Count 171 10*3/uL (140-440); RBC 4.01 10*6/uL (4.10-5.20); RDW 13.2 % (11.5-14.5); WBC 3.55 10*3/uL (4.50-10.00)
[2025-04-30 04:01] LABS: ALT 12 U/L (4-34); AST 25 U/L (14-36); African American GFR (CKD) 80 (>60 ml/min/1.73 sqM); Albumin 4.2 g/dL (3.5-5.0); Alkaline Phosphatase 67 U/L (38-126); Anion Gap 15 mmol/L; Blood Urea Nitrogen 21 mg/dL (7-17); Calcium 9.9 mg/dL (8.4-10.2); Carbon Dioxide 21 mmol/L (22-30); Chloride 95 mmol/L (98-107); Glucose 99 mg/dL (74-99); Non-African American GFR(CKD) 69 (>60 ml/min/1.73 sqM); Potassium 3.9 mmol/L (3.5-5.1); Sodium 131 mmol/L (137-145); Total Bilirubin 0.6 mg/dL (0.2-1.3); Total Protein 7.1 g/dL (6.3-8.2)
[2025-04-30 04:36] VITALS: RESP 16
[2025-04-30 04:53] LABS: Influenza A Not Detected (Not Detectd); Influenza B Not Detected (Not Detectd); RSV Not Detected (Not Detectd)
[2025-04-30 05:22] VITALS: BP 153/73; PULSE 84; TEMP 99.1
== END 2025-04-30 05:43 | disposition home or self-care (01) ==
LOC: EC 02:43
DX: A04.9 Bacterial intestinal infection, unspecified (principal)
CPT/HCPCS: 36415; 80053; 85025; 87636; 96360; 96361; 99284

== ENCOUNTER → 2025-05-20 | Outpatient (CLI) | payer MEDICARE ==
--- NOTE | 2025-05-20 13:52 | US ---
EXAMINATION TYPE: US venous doppler duplex LE LT DATE OF EXAM: 05/20/2025 1:30 PM COMPARISON: 04/21/23 CLINICAL INDICATION: Female, 69 years old with history of R60.9 EDEMA R23.3 BRUISING; edema. Hx of DV T. On blood thinners, Pain TECHNIQUE: The lower extremity deep venous system is examined utilizing real time linear array sonog chaparro with graded compression, color doppler sonography, and spectral doppler. SIDE PERFORMED: Left FINDINGS: VESSELS IMAGED: Common Femoral Vein Deep Femoral Vein Greater Saphenous Vein * Femoral Vein Popliteal Vein Small Saphenous Vein * Proximal Calf Veins (* superficial vessels) Left Leg: Echoes seen throughout the veins, but appear to be mostly compressible and have color flow throughout. Appears similar to prior study in 2022. Color Doppler imaging shows patency of the vessels. Spectral waveforms are within normal limits. IMPRESSION: No ultrasound evidence for deep venous thrombosis. [facility], , 05/20/2025 1:50 PM
== END | disposition home or self-care (01) ==
LOC: RADUSWWP 13:00
PROVIDERS: ATTEND Family Medicine
DX: R60.9 Edema, unspecified (principal); R23.3 Spontaneous ecchymoses; Z86.718 Personal history of other venous thrombosis and embolism